=== PATIENT | female | born 1970 | race Caucasian/White ===

== ENCOUNTER 2016-04-24 10:21 | Emergency (ER) | payer OTHER ==
[2016-04-24 10:36] VITALS: BP 113/63
--- NOTE | 2016-04-24 10:44 | UC ---
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 [employer]---did get flu vaccine this year - History of Current Complaint Chief Complaint: UCGeneralIllness Stated Complaint: FLU SYMPTOMS Time Seen by Provider: 04/24/16 10:27 Hx Obtained From: Patient ?: No Onset/Duration: Sudden Onset, Lasting Days - 2, Still Present Timing: Constant Severity Initially: Moderate Severity Currently: Moderate Pain Intensity: 8 Pain Scale Used: 0-10 Numeric Character: Cough: Nonproductive Aggravating Factors: Nothing Alleviating Factors: OTC Meds - antipyretics Associated Signs And Symptoms: Positive: Fever, Chills, Pleuritic Chest Pain, URI, Nasal Congestion - Allergies/Home Medications Allergies/Adverse Reactions: Allergies Allergy/AdvReac Type Severity Reaction Status Date / Time Adhesive Tape Allergy Rash Verified 04/24/16 10:28 Bacitracin [From Neosporin] Allergy Rash Verified 04/24/16 10:28 Latex Allergy Rash Verified 04/24/16 10:28 Neomycin [From Neosporin] Allergy Rash Verified 04/24/16 10:28 Polymyxin B [From Neosporin] Allergy Rash Verified 04/24/16 10:28 Shellfish Allergy Allergy Hives Verified 04/24/16 10:28 Sulfa Antibiotics Allergy Rash Verified 04/24/16 10:28 Home Medications: Home Medications Cbazeyfchoxol-Ce-VL W/ APAP [Mucinex Fast-Max Cold Flu [id number] mg] 2 teasp PO PRN 04/24/16 [History] PMH/Surg Hx/FS Hx/Imm Hx Previously Healthy: No Cardiovascular History Of: Reports: Cardiac Disorders - Palipitations Respiratory History Of: Reports: Asthma Psychological History Of: Reports: Anxiety - NO MEDS - Surgical History Surgical History: Yes Surgery Procedure, Year, and Place: APPENDECTOMY AT AGE 18 [facility]. L EYE SURGERY X2 [facility]. D+C 2004 [facility]. TUBAL LEANDRO. MOLE REMOVED RIGHT SHOULDER WITH LYMPH NODE BX 2013 [facility] - Family History Known Family History: Positive: None Family History: denies cardio vascular issues in family lineage, has been exposed to several people with flu - Social History Occupation: Employed Full-time Lives: With Family Alcohol Use: None Substance Use Type: None Smoking Status (MU): Former Smoker Type: Cigarettes Amount Used/How Often: 8 YRS Length of Time of Smoking/Using Tobacco: 8 YRS Have You Smoked in the Last Year: Yes When Did the Patient Quit Smoking/Using Tobacco: 5 MONTHS AGO - Immunization History Most Recent Influenza Vaccination: 10/2015 Hx Tetanus, Diphtheria Vaccination: No Vaccination Up to Date: No Review of Systems Constitutional: Fever, Chills, Fatigue Skin: Negative Eyes: Negative ENT: Sore Throat, Ear Ache, Nasal Discharge Respiratory: Cough Cardiovascular: Negative Gastrointestinal: Vomiting, Diarrhea Genitourinary: Negative Motor: Negative Neurovascular: Negative Musculoskeletal: Arthralgia, Myalgia Neurological: Negative Psychological: Negative All Other Systems Reviewed And Are Negative: Yes Physical Exam Triage Information Reviewed: Yes Appearance: Well-Nourished, Ill-Appearing, Pain Distress Vital Signs: Initial Vital Signs Temp 98.6 F 04/24/16 10:32 Pulse 83 04/24/16 10:32 Resp 20 04/24/16 10:32 BP 113/63 04/24/16 10:32 Pulse Ox 99 04/24/16 10:32 Vital Signs Reviewed: Yes Eye Exam: Normal Eyes: Positive: Conjunctiva Clear ENT Exam: Normal ENT: Positive: Normal ENT inspection, Hearing grossly normal, Nasal congestion, Nasal drainage, TMs normal. Negative: Tonsillar swelling, Tonsillar exudate, Trismus, Muffled/hoarse voice Dental Exam: Normal Neck exam: Normal Neck: Positive: Supple, Nontender, No Lymphadenopathy Respiratory Exam: Normal Respiratory: Positive: Chest non-tender, Lungs clear, Normal breath sounds, No respiratory distress, No accessory muscle use Cardiovascular Exam: Normal Cardiovascular: Positive: RRR, No Murmur, Pulses Normal, Brisk Capillary Refill Abdominal Exam: Normal Abdomen Description: Positive: Nontender, No Organomegaly, Soft Bowel Sounds: Positive: Present Musculoskeletal Exam: Normal Musculoskeletal: Positive: Strength Intact, ROM Intact, No Edema Neurological Exam: Normal Neurological: Positive: Alert, Muscle Tone Normal Psychological Exam: Normal Skin Exam: Normal UC Diagnostic Evaluation - Laboratory O2 Sat by Pulse Oximetry: 99 Diagnostic Studies Comment: Influenza A positive Respiratory Course/Dx - Course Course Of Treatment: Tamiflu, tylenol, ibuprofen, increase fluids, rest follow with pcp re-check prn - Differential Dx/Diagnosis Differential Diagnosis/HQI/PQRI: Bronchitis, Influenza, Laryngitis, Lower Resp Infection, Sinusitis Provider Diagnoses: Influenza A Discharge - Discharge Plan Condition: Stable Disposition: HOME Prescriptions: Oseltamivir Phosphate [Tamiflu] 75 mg PO BID #10 cap Patient Education Materials: Influenza (ED) Forms: *Work Release Referrals: [facility] [place] [facility] [Outside] - If Needed Non Staff,Doctor [Primary Care Provider] -
== END 2016-04-24 11:09 | disposition home or self-care (01) ==
LOC: UCEAST 10:21
DX: J09.X2 Influenza due to identified novel influenza A virus with other respiratory manifestations (principal); Z87.891 Personal history of nicotine dependence
CPT/HCPCS: 87502; 99212; G0463

== ENCOUNTER 2016-06-01 10:21 | Emergency (ER) | payer OTHER ==
--- NOTE | 2016-06-01 13:13 | UC ---
Lower Extremity/Ankle HPI - HPI Summary HPI Summary: The patient comes in today for: 1. Both ankle and foot pain: Onset: 1 month. Palliative/provocative: The more she is on her feet, the more they swell. Quality: Sharp Region: Both feet, soles of the feet. Severity: at rest--7/10. May go up to a 10/10 Time: Constant. Associated symptoms: Previous treatment: Ibuprofen helps take the swelling down, but not the sharp pain. Previous evaluation: None. She has no insurance at work. Worse in morning: Not necessarily. Primary care provider: David. * - History of Current Complaint Chief Complaint: UCLowerExtremity Stated Complaint: ANKLE PAIN Time Seen by Provider: 06/01/16 12:29 Hx Obtained From: Patient Hx Last Menstrual Period: Hyst. - Allergies/Home Medications Allergies/Adverse Reactions: Allergies Allergy/AdvReac Type Severity Reaction Status Date / Time Adhesive Tape Allergy Rash Verified 06/01/16 10:56 Bacitracin [From Neosporin] Allergy Rash Verified 06/01/16 10:56 Latex Allergy Rash Verified 06/01/16 10:56 Morphine and Related Allergy Rash Verified 06/01/16 10:56 Neomycin [From Neosporin] Allergy Rash Verified 06/01/16 10:56 Polymyxin B [From Neosporin] Allergy Rash Verified 06/01/16 10:56 Shellfish Allergy Allergy Hives Verified 06/01/16 10:56 Sulfa Antibiotics Allergy Rash Verified 06/01/16 10:56 PMH/Surg Hx/FS Hx/Imm Hx Previously Healthy: No Endocrine History Of: Denies: Diabetes, Thyroid Disease, Hyperthyroidism, Hypothyroidism, Dyslipidemia Cardiovascular History Of: Reports: Cardiac Disorders - She has yet to get "checked out" her heart palpitaitons. Denies: Hypertension, Pacemaker/ICD, Myocardial Infarction, Congestive Heart Failure, Atrial Fibrillation, Deep Vein Thrombosis, Bleeding Disorders Respiratory History Of: Reports: Asthma Denies: COPD, Bronchitis, Pneumonia, Pulmonary Embolism GI/ History Of: Denies: Gastroesophageal Reflux, Ulcer, Gastrointestinal Bleed, Gall Bladder Disease, Kidney Stones, Diverticulitis, Renal Disease, Urosepsis Neurological History Of: Denies: TIA, CVA, Dementia, Seizures, Migraine Psychological History Of: Reports: Anxiety - NO MEDS Denies: Depression, Bipolar Disorder, Schizophrenia, Post Traumatic Stress Disorder Cancer History Of: Denies: Lung Cancer, Colorectal Cancer, Breast Cancer, Prostate Cancer, Cervical Cancer Other History Of: Negative For: HIV, Hepatitis B, Hepatitis C, Anticoagulant Therapy - Surgical History Surgical History: Yes Surgery Procedure, Year, and Place: APPENDECTOMY AT AGE 18 [facility]. L EYE SURGERY X2 [facility]. D+C 2004 [facility]. TUBAL LEANDRO. MOLE REMOVED RIGHT SHOULDER WITH LYMPH NODE BX 2012 [facility] - Family History Known Family History: Positive: Cardiac Disease, Hypertension, Diabetes Family History: denies cardio vascular issues in family lineage, has been exposed to several people with flu - Social History Occupation: Employed Full-time Alcohol Use: None Substance Use Type: None Smoking Status (MU): Former Smoker Type: Cigarettes Amount Used/How Often: 8 YRS Length of Time of Smoking/Using Tobacco: 8 YRS Have You Smoked in the Last Year: Yes When Did the Patient Quit Smoking/Using Tobacco: 5 MONTHS AGO - Immunization History Most Recent Influenza Vaccination: 10/2015 Hx Tetanus, Diphtheria Vaccination: No Vaccination Up to Date: No Review of Systems Constitutional: Negative Skin: Negative Eyes: Negative ENT: Negative Respiratory: Negative Cardiovascular: Negative Gastrointestinal: Negative Genitourinary: Negative Musculoskeletal: Arthralgia, Myalgia All Other Systems Reviewed And Are Negative: Yes Physical Exam Triage Information Reviewed: Yes Appearance: Well-Appearing, No Pain Distress, Well-Nourished Vital Signs: Initial Vital Signs Temp 98.0 F 06/01/16 10:48 Pulse 60 06/01/16 10:48 Resp 18 06/01/16 10:48 BP 113/60 06/01/16 10:48 Pulse Ox 100 06/01/16 10:48 Vital Signs Reviewed: Yes Eyes: Positive: Conjunctiva Clear. Negative: Discharge ENT: Positive: Hearing grossly normal. Negative: Pharyngeal erythema, Nasal congestion, Nasal drainage, TM bulging, TM dull, TM red, Tonsillar swelling, Tonsillar exudate Dental: Negative: Gross Decay/Caries @, Dental Fracture @ Neck: Positive: Supple, Nontender, No Lymphadenopathy. Negative: Nuchal Rigidity Respiratory: Positive: Lungs clear, No respiratory distress, No accessory muscle use. Negative: Crackles, Wheezing Cardiovascular: Positive: RRR, No Murmur Abdomen Description: Positive: Nontender, No Organomegaly, Soft. Negative: Distended, Guarding Musculoskeletal: Positive: Strength Intact, Other: - Both feet: She has no ecchymosis or edema or erythema. There is tenderness of the volar aspect of both feet from the ball of the foot to the calcaneous. Pressing on the sole of the foot does elicit the pain that she has been having. She has a slightly prominent MP joint of the right foot (1st toe). Neurological: Positive: Alert, Muscle Tone Normal Psychological: Positive: Age Appropriate Behavior, Consolable Skin: Negative: rashes, breakdown Lower Extremity Course/Dx - Course Course Of Treatment: Patient told of her diagnosis and physical therapy stretching exercises. - Differential Dx/Diagnosis Differential Diagnosis/HQI/PQRI: Cellulitis, Sprain Provider Diagnoses: bilateral plantar fasciitis. Discharge - Discharge Plan Condition: Stable Disposition: HOME Patient Education Materials: Plantar Fasciitis (ED), Plantar Fasciitis Exercises (GEN) Referrals: Non Staff,Doctor [Primary Care Provider] - (Please see your primary care provider in a week to see how well you are doing. If you get worse, please be seen sooner in the ER or through us.) Loco Vallejo DPM [Doctor of Podiatric Medicine] - Jeffrey López DPM [Doctor of Podiatric Medicine] - Josefina Campos DPM [Doctor of Podiatric Medicine] - Additional Instructions: Please contact any of the podiatrists listed for a follow-up evaluation and treatment.
[2016-06-01 13:42] VITALS: BP 126/66
== END 2016-06-01 13:42 | disposition home or self-care (01) ==
LOC: UCEAST 10:21
DX: M72.2 Plantar fascial fibromatosis (principal); J45.909 Unspecified asthma, uncomplicated; Z88.6 Allergy status to analgesic agent; Z91.040 Latex allergy status; Z91.048 Other nonmedicinal substance allergy status
CPT/HCPCS: 99212; G0463

== ENCOUNTER 2016-09-16 10:01 | Emergency (ER) | payer OTHER ==
--- NOTE | 2016-09-16 11:20 | UC ---
Respiratory Complaint HPI - HPI Summary HPI Summary: PT WITH H/O ASTHMA STARTED WITH COUGH AND WHEEZE LAST NIGHT. HAS HAD EXPOSURE TO PEOPLE WITH URI AND ALSO HAS MILD ST AND CONGESTION. NO FEVER. NO CP. ALBUTEROL NOT HELPING. RAN OUT OF ADVAIR. ALSO HAS HAD PALPITATIONS FOR PAST COUPLE OF YEARS INTERMITTENTLY. OCCURS EVERY FEW DAYS AND LASTS FOR ABOUT A SECOND. PT ADMITS TO DRINKING EXCESSIVE CAFFEINE AND IS NOT SLEEPING ENOUGH AND IS STRESSED. TRIES TO DRINK A LOT OF WATER. HAS BEEN EVALUATED BY A PCP IN THE PAST AND TOLD TO SIMPLY MONITOR. PT NO LONGER HAS PRIMARY CARE AND JUST WANTED TO CHECK ON IT. IS NOT HAVING ANY INCREASE IN FREQUENCY OF EPISODES OR CHANGE IN SYMPTOMS. - History of Current Complaint Chief Complaint: UCRespiratory Stated Complaint: DIFFICULTY BREATHING/ASTHMA Time Seen by Provider: 09/16/16 10:24 Hx Obtained From: Patient Hx Last Menstrual Period: Hyst. Onset/Duration: Gradual Onset, Lasting Days, Still Present Timing: Constant Severity Initially: Moderate Severity Currently: Moderate Pain Intensity: 3 Pain Scale Used: 0-10 Numeric Character: Cough: Nonproductive Aggravating Factors: Deep Breaths Alleviating Factors: Nothing Associated Signs And Symptoms: Positive: Wheezing, URI, Nasal Congestion. Negative: Fever, Pleuritic Chest Pain, Dizziness - Allergies/Home Medications Allergies/Adverse Reactions: Allergies Allergy/AdvReac Type Severity Reaction Status Date / Time Adhesive Tape Allergy Rash Verified 09/16/16 10:18 Bacitracin [From Neosporin] Allergy Rash Verified 09/16/16 10:18 Latex Allergy Rash Verified 09/16/16 10:18 Morphine and Related Allergy Rash Verified 09/16/16 10:18 Neomycin [From Neosporin] Allergy Rash Verified 09/16/16 10:18 Polymyxin B [From Neosporin] Allergy Rash Verified 09/16/16 10:18 Shellfish Allergy Allergy Hives Verified 09/16/16 10:18 Sulfa Antibiotics Allergy Rash Verified 09/16/16 10:18 Home Medications: Home Medications Conjugated Estrogens TAB* [Premarin TAB*] 1 tab PO DAILY 09/16/16 [History Confirmed 09/16/16] Otc Hot Flash Med 1 tab PO BID 09/16/16 [History] PMH/Surg Hx/FS Hx/Imm Hx Respiratory History: Asthma Other History Of: Negative For: HIV, Hepatitis B, Hepatitis C, Anticoagulant Therapy - Surgical History Surgical History: Yes Surgery Procedure, Year, and Place: APPENDECTOMY AT AGE 18 [place]. L EYE SURGERY X2 [facility]. D+C 2003 [facility]. TUBAL LEANDRO. MOLE REMOVED RIGHT SHOULDER WITH LYMPH NODE BX 2013 [facility]. HYSTERECTOMY - Family History Known Family History: Positive: Cardiac Disease, Hypertension, Diabetes - Social History Alcohol Use: Occasionally Substance Use Type: None Smoking Status (MU): Former Smoker Type: Cigarettes Amount Used/How Often: 8 YRS Length of Time of Smoking/Using Tobacco: 8 YRS Have You Smoked in the Last Year: Yes When Did the Patient Quit Smoking/Using Tobacco: 5 MONTHS AGO - Immunization History Most Recent Influenza Vaccination: 10/2015 Hx Tetanus, Diphtheria Vaccination: No Vaccination Up to Date: No Review of Systems Constitutional: Fatigue Respiratory: Cough, Other - WHEEZE Cardiovascular: Palpitations Gastrointestinal: Negative Genitourinary: Negative Neurological: Negative All Other Systems Reviewed And Are Negative: Yes Physical Exam Triage Information Reviewed: Yes Appearance: Well-Appearing, No Pain Distress, Well-Nourished Vital Signs: Initial Vital Signs Temp 97.9 F 09/16/16 10:20 Pulse 61 09/16/16 10:20 Resp 16 09/16/16 10:20 BP 111/72 09/16/16 10:20 Pulse Ox 100 09/16/16 10:20 Vital Signs Reviewed: Yes Eyes: Positive: Conjunctiva Clear ENT: Positive: Hearing grossly normal, Pharynx normal, TMs normal Neck: Positive: Supple, Nontender, No Lymphadenopathy Respiratory Exam: Normal Respiratory: Negative: Wheezing Cardiovascular Exam: Normal Cardiovascular: Positive: Other: - NO ECTOPIC BEATS AUSCULTATED Abdomen Description: Positive: Soft Musculoskeletal: Positive: No Edema Neurological: Positive: Alert Psychological: Positive: Age Appropriate Behavior Skin: Negative: rashes UC Diagnostic Evaluation - Laboratory O2 Sat by Pulse Oximetry: 100 - EKG Cardiac Rate: Bradycardia - 54 BPM Cardiac Rhythm: Sinus: Normal Ectopy: None ST Segment: Normal Respiratory Course/Dx - Differential Dx/Diagnosis Provider Diagnoses: 1. ACUTE URI. 2. PALPITATIONS Discharge - Discharge Plan Condition: Stable Disposition: HOME Prescriptions: Albuterol HFA INHALER* [Ventolin HFA Inhaler*] 2 puff INH Q4H PRN #1 mdi PRN Reason: Shortness Of Breath Fluticasone-Salmeterol 250-50* [Advair Diskus 250-50*] 1 puff INH BID #1 diskus predniSONE TAB* [Deltasone TAB*] 50 mg PO DAILY #5 tab Patient Education Materials: Palpitations (ED), Asthma (ED), Upper Respiratory Infection (ED) Forms: *Work Release Referrals: Eliot Gage DO [Medical Doctor] - If Needed Additional Instructions: TAKE THE ADVAIR TWICE DAILY AND USE THE ALBUTEROL RESCUE. TAKE THE PREDNISONE DAILY FOR 5 DAYS. PALPITATIONS CAN BE CAUSED BY EXCESSIVE CAFFEINE, LACK OF SLEEP, STRESS, RELATIVE DEHYDRATION AND ELECTROLYTE ABNORMALITIES. IF YOU FEEL LIKE YOUR EPISODES ARE BECOMING MORE FREQUENT OR PROLONGED, OR IF YOU DEVELOP OTHER SYMPTOMS SUCH CHEST PAIN, SHORTNESS OF BREATH, DIZZINESS OR OTHER CONCERNING SYMPTOMS - GO DIRECTLY TO THE ER. CALL THE NUMBER BELOW FOR ASSISTANCE IN ESTABLISHING WITH A PCP An additional resource available to assist in finding the appropriate physician for your health care needs is the [facility] ([facility]). You may contact them by calling [phone].
[2016-09-16 12:00] VITALS: BP 111/71
== END 2016-09-16 11:59 | disposition home or self-care (01) ==
LOC: UCEAST 10:01
DX: J06.9 Acute upper respiratory infection, unspecified (principal); R00.2 Palpitations; Z87.891 Personal history of nicotine dependence
CPT/HCPCS: 93005; 99212; G0463

== ENCOUNTER 2016-10-11 14:17 | Emergency (ER) | payer OTHER ==
[2016-10-11 14:41] VITALS: BP 125/76
--- NOTE | 2016-10-11 15:33 | UC ---
Andrew Rock SooYoung, scribed for Roscoe Yee MD on 10/11/16 at 1524 . Skin Complaint HPI - HPI Summary HPI Summary: A 46 y/o F presents to [facility] [place] with c/o diffuse, pruritic rash on bilat UE onset yesterday. Associated sx: erythema, pain described as burning, small blisters. Denies dysphagia, throat tightening. The rash has spread mildly to the face. 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 She's been using Calamine lotion to mild relief. Wears sunscreen but has never had a rxn previously to it. - History of Current Complaint Chief Complaint: UCSkin Time Seen by Provider: 10/11/16 15:13 Stated Complaint: RASH Hx Obtained From: Patient Hx Last Menstrual Period: Hyst. Onset/Duration: Lasting Days - onset yesterday, Still Present Timing: Constant Current Severity: Moderate Pain Intensity: 6 Pain Scale Used: 0-10 Numeric Location: Face - mild, Other - bilat UE Character: Pruritus, Pain, Redness Alleviating: Other - Calamine lotion - Allergy/Home Medications Allergies/Adverse Reactions: Allergies Allergy/AdvReac Type Severity Reaction Status Date / Time Adhesive Tape Allergy Rash Verified 09/16/16 10:18 Bacitracin [From Neosporin] Allergy Rash Verified 09/16/16 10:18 Latex Allergy Rash Verified 09/16/16 10:18 Morphine and Related Allergy Rash Verified 09/16/16 10:18 Neomycin [From Neosporin] Allergy Rash Verified 09/16/16 10:18 Polymyxin B [From Neosporin] Allergy Rash Verified 09/16/16 10:18 Shellfish Allergy Allergy Hives Verified 09/16/16 10:18 Sulfa Antibiotics Allergy Rash Verified 09/16/16 10:18 Review of Systems Constitutional: Negative Skin: Rash - itchy, painful, small blisters on bilat UE and lower face Eyes: Negative ENT: Negative Respiratory: Negative Cardiovascular: Negative Gastrointestinal: Negative Genitourinary: Negative Motor: Negative Neurovascular: Negative Musculoskeletal: Negative Neurological: Negative Psychological: Negative All Other Systems Reviewed And Are Negative: Yes PMH/Surg Hx/FS Hx/Imm Hx Previously Healthy: No - pos: arthritis Cardiovascular History: Other Other Cardiovascular History: palpitations Respiratory History: Asthma Psychological History: Anxiety Other History Of: Negative For: HIV, Hepatitis B, Hepatitis C, Anticoagulant Therapy - Surgical History Surgical History: Yes Surgery Procedure, Year, and Place: APPENDECTOMY AT AGE 18 [place]. L EYE SURGERY X2 [facility]. D+C 2004 [facility]. TUBAL [facility]DR[facility]. MOLE REMOVED RIGHT SHOULDER WITH LYMPH NODE BX 2012 [facility]. HYSTERECTOMY - Family History Known Family History: Positive: Cardiac Disease, Hypertension, Diabetes - Social History Occupation: Employed Full-time Lives: With Family - FRIEND Alcohol Use: Occasionally Substance Use Type: None Smoking Status (MU): Former Smoker Type: Cigarettes Amount Used/How Often: 8 YRS Length of Time of Smoking/Using Tobacco: 8 YRS Have You Smoked in the Last Year: Yes When Did the Patient Quit Smoking/Using Tobacco: 5 MONTHS AGO - Immunization History Most Recent Influenza Vaccination: 10/2015 Hx Tetanus, Diphtheria Vaccination: No Vaccination Up to Date: No Physical Exam Triage Information Reviewed: Yes Appearance: Well-Appearing, No Pain Distress Vital Signs: Initial Vital Signs Temp 97.4 F 10/11/16 14:38 Pulse 61 10/11/16 14:38 Resp 16 10/11/16 14:38 BP 125/76 10/11/16 14:38 Pulse Ox 100 10/11/16 14:38 Vital Signs Reviewed: Yes Eyes: Positive: Other: - EOMI/CATALINO ENT: Positive: Pharynx normal, TMs normal Neck: Positive: Supple, Nontender Respiratory: Positive: Chest non-tender, Lungs clear, Normal breath sounds Cardiovascular: Positive: RRR Musculoskeletal: Positive: Strength Intact, ROM Intact Neurological Exam: Normal - sensory/motor intact Neurological: Positive: Alert - A&Ox3 Psychological Exam: Normal Psychological: Positive: Age Appropriate Behavior Skin: Positive: rashes - Erythematous areas scattered on arms and lower face. No vescicles. Some excoriation. Calamine lotion present. Course/Dx - Course Course Of Treatment: Pt medications reviewed this visit. Pre-Hypertensive BP reading (121-139/81-89); patient referred to PCP for follow-up. RX PREDNISONE 40MG PO QD X 5 DAYS. - Diagnoses Provider Diagnoses: RASH ON ARMS AND FACE. PROBABLE CONTACT DERMATITIS. Discharge - Discharge Plan Condition: Stable Disposition: HOME Prescriptions: Prednisone [Deltasone] 40 mg PO DAILY #10 tab Patient Education Materials: Acute Rash (ED) Referrals: No Primary Care Phys,NOPCP [Primary Care Provider] - [facility] [place] [facility] [Outside] Additional Instructions: Your blood pressure reading today was 125/75 which is PRE-HYPERTENSIVE. Establish with a new primary care provider and follow-up within 4 weeks for blood pressure readings and further evaluation. If you cant find a provider, try to check your blood pressure on your own and see if its above 120/80. If so , follow up for further evaluation and treatment. FOLLOW UP WITH YOUR DOCTOR. GET RECHECKED FOR ANY WORSENING OF YOUR CONDITION; DIFFICULTY WITH BREATHING OR SWALLOWING, YOU FEEL ILL OR QUESTIONS OR CONCERNS. The documentation as recorded by the Andrew frederick SooYoung accurately reflects the service I personally performed and the decisions made by me, Roscoe Yee MD.
== END 2016-10-11 15:35 | disposition home or self-care (01) ==
LOC: UCEAST 14:17
DX: R21 Rash and other nonspecific skin eruption (principal); R00.2 Palpitations; J45.909 Unspecified asthma, uncomplicated; F41.9 Anxiety disorder, unspecified; Z88.3 Allergy status to other anti-infective agents; Z91.040 Latex allergy status; Z88.5 Allergy status to narcotic agent; Z91.013 Allergy to seafood; Z91.048 Other nonmedicinal substance allergy status; Z87.891 Personal history of nicotine dependence
CPT/HCPCS: 99212; G0463

== ENCOUNTER 2017-02-02 13:37 | Emergency (ER) | payer OTHER ==
[2017-02-02 14:01] VITALS: BP 128/68
[2017-02-02] MEDS ORDERED: Ketorolac INJ* 30 MG/ML 1 ML VIAL IM ONE (14:35)
--- NOTE | 2017-02-02 14:43 | UC ---
Back Pain HPI - HPI Summary HPI Summary: 46 yo female with the onset of mid thoracic back pain yesterday while at rest Hurts to take a deep breath hurts to lay flat hurts to twist Has asthma Has used rescue inhaler a few times in past week no f/c no CP no SOB Rxed for Bronchitis about a month ago with Prednisone and Amox still coughs and brings up phlegm - History of Current Complaint Chief Complaint: UCGeneralIllness Stated Complaint: PAIN WHEN BREATHING Time Seen by Provider: 02/02/17 14:24 Hx Obtained From: Patient Hx Last Menstrual Period: Hyst. Onset/Duration: Sudden Onset, Lasting Hours Timing: Constant Severity Initially: Moderate Severity Currently: Moderate Pain Intensity: 6 Pain Scale Used: 0-10 Numeric Back Pain: Is Diffuse - see image Character: Aching, Throbbing, Spasmodic Aggravating Factor(s): Movement, Bending, Other - deep breath Alleviating Factor(s): Rest - Allergies/Home Medications Allergies/Adverse Reactions: Allergies Allergy/AdvReac Type Severity Reaction Status Date / Time Adhesive Tape Allergy Rash Verified 02/02/17 13:52 Bacitracin [From Neosporin] Allergy Rash Verified 02/02/17 13:52 Latex Allergy Rash Verified 02/02/17 13:52 Morphine and Related Allergy Rash Verified 02/02/17 13:52 Neomycin [From Neosporin] Allergy Rash Verified 02/02/17 13:52 Polymyxin B [From Neosporin] Allergy Rash Verified 02/02/17 13:52 Shellfish Allergy Allergy Hives Verified 02/02/17 13:52 Sulfa Antibiotics Allergy Rash Verified 02/02/17 13:52 PMH/Surg Hx/FS Hx/Imm Hx Respiratory History: Asthma, Bronchitis Other History Of: Negative For: HIV, Hepatitis B, Hepatitis C, Anticoagulant Therapy - Surgical History Surgical History: Yes Surgery Procedure, Year, and Place: APPENDECTOMY AT AGE 18 [facility]. L EYE SURGERY X2 [facility]. D+C 2004 [facility]. TUBAL [facility]. MOLE REMOVED RIGHT SHOULDER WITH LYMPH NODE BX 2013 [facility]. HYSTERECTOMY - Family History Known Family History: Positive: Cardiac Disease, Hypertension, Diabetes, Respiratory Disease Family History: denies cardio vascular issues in family lineage, has been exposed to several people with flu - Social History Alcohol Use: Occasionally Substance Use Type: None Smoking Status (MU): Former Smoker Type: Cigarettes Amount Used/How Often: 8 YRS Length of Time of Smoking/Using Tobacco: 8 YRS Have You Smoked in the Last Year: Yes When Did the Patient Quit Smoking/Using Tobacco: 5 MONTHS AGO - Immunization History Most Recent Influenza Vaccination: 10/2015 Hx Tetanus, Diphtheria Vaccination: No Vaccination Up to Date: No Review of Systems Constitutional: Negative Skin: Negative Eyes: Negative ENT: Negative Respiratory: Cough Cardiovascular: Negative Gastrointestinal: Negative Genitourinary: Negative Motor: Negative Neurovascular: Negative Musculoskeletal: Myalgia Neurological: Negative Psychological: Negative Is Patient Immunocompromised?: No All Other Systems Reviewed And Are Negative: Yes Physical Exam Triage Information Reviewed: Yes Appearance: Well-Appearing, No Pain Distress, Well-Nourished Vital Signs: Initial Vital Signs Temp 98.6 F 02/02/17 13:54 Pulse 70 02/02/17 13:54 Resp 16 02/02/17 13:54 BP 128/68 02/02/17 13:54 Pulse Ox 100 02/02/17 13:54 Vital Signs Reviewed: Yes Eyes: Positive: Conjunctiva Clear ENT: Positive: Hearing grossly normal, Uvula midline. Negative: Nasal congestion, Nasal drainage, Tonsillar swelling, Tonsillar exudate Neck: Positive: Supple, Nontender, No Lymphadenopathy Respiratory: Positive: Lungs clear, Normal breath sounds, No respiratory distress, No accessory muscle use Cardiovascular: Positive: RRR, No Murmur, Pulses Normal Musculoskeletal: Positive: ROM Intact, No Edema Neurological: Positive: Alert Skin Exam: Normal Diagnostics - Laboratory Diagnostic Studies Completed/Ordered: pulse ox 100% on room air comment: normal/not hypoxic - Radiology No standard instances Xray Interpretation: No Acute Changes - CXR Radiology Interpretation Completed By: Radiologist - EKG Cardiac Rate: NL Cardiac Rhythm: Sinus: Normal Ectopy: None ST Segment: Normal Back Pain Course/Dx - Differential Dx/Diagnosis Provider Diagnoses: Back pain of uncertain cause. ? pleurisy Discharge - Discharge Plan Condition: Stable Disposition: HOME Patient Education Materials: Back Pain (ED), Pleurisy (ED) Referrals: Madison Richardson MD [Primary Care Provider] - 4 Days (if not better) Additional Instructions: recheck for new or worsening symptoms
--- NOTE | 2017-02-02 15:14 | RAD ---
INDICATION: Back pain. Cough COMPARISON: None TECHNIQUE: PA and lateral dual-energy views were obtained. FINDINGS: Bones/Soft Tissues: There are no acute bony findings. Cardiomediastinal: The cardiomediastinal silhouette is normal. Lungs: There are no infiltrates. Pleura: There are no pleural effusions. Other: None IMPRESSION: NO ACTIVE DISEASE.
[2017-02-02] MEDS ORDERED: predniSONE TAB* 20 MG PO ONE (15:18)
== END 2017-02-02 15:35 | disposition home or self-care (01) ==
LOC: UCEAST 13:37
DX: M54.6 Pain in thoracic spine (principal); J45.909 Unspecified asthma, uncomplicated; Z88.2 Allergy status to sulfonamides; Z88.3 Allergy status to other anti-infective agents; Z91.040 Latex allergy status; Z88.5 Allergy status to narcotic agent; Z91.013 Allergy to seafood; Z87.891 Personal history of nicotine dependence
CPT/HCPCS: 71020; 81003; 93005; 99212; G0463; J1885; J7512